=== PATIENT | female | born 1960 | race Caucasian/White ===

== ENCOUNTER 2019-01-30 14:04 | Emergency (ER) | payer MEDICAID, OTHER ==
[2019-01-30] MEDS: SODIUM CHLORIDE 0.9% 1L BAG IV* (14:11)
[2019-01-30] MEDS: IPRATROPIUM (NEB) 0.5 MG/2.5 ML AMP INH (15:11)
[2019-01-30] MEDS: ALBUTEROL 0.083% (NEB) 2.5 MG/3 ML AMP HHN (15:11)
[2019-01-30 15:15] LABS: ADD MAN DIFF? NO
[2019-01-30] MEDS: PROMETHAZINE/DM (CUP) PO (15:34)
[2019-01-30 15:35] LABS: ADD UMIC NO; BASOPHILS % 0.4 % (0.0-2.0); EOSINOPHILS # 0.1 10^3/ul (0.0-0.5); EOSINOPHILS % 0.9 % (0.0-7.0); HEMATOCRIT 44.8 % (37.0-47.0); HEMOGLOBIN 14.4 g/dl (12.0-16.0); LYMPHOCYTES # 0.9 10^3/ul (0.8-2.9); LYMPHOCYTES % 8.6 % (15.0-51.0); MEAN CORPUSCULAR HEMOGLOBIN 30.8 pg (29.0-33.0); MEAN CORPUSCULAR HGB CONC 32.1 g/dl (32.0-37.0); MEAN CORPUSCULAR VOLUME 95.9 fl (82.0-101.0); MEAN PLATELET VOLUME 10.7 fl (7.4-10.4); MONOCYTE # 0.6 10^3/ul (0.3-0.9); MONOCYTES % 5.7 % (0.0-11.0); NEUTROPHIL # 8.4 10^3/ul (1.6-7.5); NEUTROPHILS % 83.7 % (39.0-77.0); PLATELET COUNT 142 10^3/UL (140-415); RED BLOOD COUNT 4.67 10^6/ul (4.20-5.40); RED CELL DISTRIBUTION WIDTH 13.6 % (11.5-14.5); UR ASCORBIC ACID NEGATIVE (NEGATIVE); UR BILIRUBIN (Dip) NEGATIVE (NEGATIVE); UR BLOOD (Dip) NEGATIVE (NEGATIVE); UR CLARITY SLIGHTLY CLOUDY (CLEAR); UR COLOR YELLOW (YELLOW); UR GLUCOSE (Dip) NEGATIVE (NEGATIVE); UR KETONES (Dip) NEGATIVE (NEGATIVE); UR LEUKOCYTE ESTERASE (Dip) NEGATIVE Leu/ul (NEGATIVE); UR MUCUS FEW /HPF (NONE SEEN); UR NITRITE (Dip) NEGATIVE (NEGATIVE); UR RBC 0 /HPF (0-5); UR SPECIFIC GRAVITY (Dip) 1.019 (1.003-1.030); UR TOTAL PROTEIN (Dip) NEGATIVE (NEGATIVE); UR UROBILINOGEN (Dip) NEGATIVE (NEGATIVE); UR WBC 1 /HPF (0-5)
[2019-01-30 15:51] LABS: INR 0.85; PROTIME 11.7 Sec (11.9-14.9); PT RATIO 0.9
[2019-01-30 15:52] LABS: PARTIAL THROMBOPLASTIN TIME 27.3 Sec (23.0-35.0)
[2019-01-30 15:56] LABS: ALANINE AMINOTRANSFERASE 14 IU/L (13-69); ALBUMIN/GLOBULIN RATIO 1.33; ALKALINE PHOSPHATASE 72 IU/L (42-121); ANION GAP 10 (5-13); ASPARTATE AMINO TRANSFERASE 25 IU/L (15-46); BILIRUBIN,INDIRECT 0.5 mg/dl (0-1.1); BILIRUBIN,TOTAL 0.5 mg/dl (0.2-1.3); BLOOD UREA NITROGEN 14 mg/dl (7-20); CALCIUM 9.2 mg/dl (8.4-10.2); CARBON DIOXIDE 25 mmol/L (21-31); CHLORIDE 105 mmol/L (97-110); CREATININE 0.64 mg/dl (0.44-1.00); Estimated GFR > 60 mL/min (>60); GLUCOSE 145 mg/dl (70-220); POTASSIUM 4.3 mmol/L (3.5-5.1); SODIUM 140 mmol/L (135-144)
[2019-01-30 16:06] LABS: TROPONIN-I < 0.012 ng/ml (0.000-0.120)
== END 2019-01-30 17:19 | disposition home or self-care (01) ==
LOC: FTE 14:04
DX: J20.9 Acute bronchitis, unspecified (principal); R50.9 Fever, unspecified; Z87.891 Personal history of nicotine dependence
CPT/HCPCS: 36415; 71045; 80053; 81001; 81003; 83605; 84484; 85025; 85610; 85730; 87040; 87086; 87400; 93005; 94664; 99285-25